=== PATIENT | male | born 1970 | race Caucasian/White ===

== ENCOUNTER 2016-12-31 22:14 | Emergency (ER) | payer OTHER ==
[~2016-12-31] VITALS: Ht 188 cm; Wt 111.7 kg
[2017-01-01] VITALS: BP 123/69
== END 2017-01-01 00:02 | disposition home or self-care (01) ==
LOC: RME 22:14 → EME 22:14 → RME 01-01 00:02
DX: S50.812A Abrasion of left forearm, initial encounter (principal); M54.9 Dorsalgia, unspecified; V49.9XXA Car occupant (driver) (passenger) injured in unspecified traffic accident, initial encounter; F17.200 Nicotine dependence, unspecified, uncomplicated
CPT/HCPCS: 71020; 72070; 99281; 99284